=== PATIENT | female | born 1970 | race Caucasian/White ===

== ENCOUNTER 2017-09-23 09:58 | Emergency (ER) | payer MEDICAID ==
[~2017-09-23] VITALS: Ht 162.6 cm; Wt 85.7 kg
[2017-09-23 10:11] VITALS: Ht 162.6 cm; Wt 85.7 kg
[2017-09-23 13:23] VITALS: BP 131/78
== END 2017-09-23 13:21 | disposition home or self-care (01) ==
LOC: ED 09:58
DX: M54.6 Pain in thoracic spine (principal); R04.2 Hemoptysis
CPT/HCPCS: 72072; J1885; Q0092